=== PATIENT | male | born 1985 | race Caucasian/White ===

== ENCOUNTER 2017-04-03 11:52 | Observation (INO) | payer OTHER ==
--- NOTE | ~2017-04-03 | OR ---
Unit #: [id number] #: [id number] Patient: MELISSA CEDEÑO [id number] [address] [place], [place] [address] [id number] I MR#: [id number] NAME: MELISSA CEDÑEO ROOM: 226 Date of Procedure: 04/03/2017 Admission Date: 04/03/2017 Surgeon: Tim Conte Jr., M.D. : 1985 Attending Physician: Tim Conte Jr., M.D. Primary Care Physician: Karolina Alexander A.P.R.N. OPERATIVE REPORT INDICATIONS FOR PROCEDURE The patient is a 31-year-old white male, who presented complaining of severe right lower quadrant abdominal pain with associated nausea and vomiting. White blood cell count was elevated. CT scan was compatible with acute probably nonperforated appendicitis. He is brought to the operating room at this time for laparoscopic appendectomy. He understands the procedure including the risks, including that of bleeding, infection, staple line leak and abscess formation, and consents. PREOPERATIVE DIAGNOSIS Acute nonperforated appendicitis. POSTOPERATIVE DIAGNOSIS Acute nonperforated appendicitis. Noting a retrocecal appendix extending all the way up to under the liver edge on the right. There was no evidence of any perforation. ANESTHESIA General with endotracheal intubation and 0.5% Marcaine with epinephrine locally. PROCEDURE PERFORMED Laparoscopic lysis of adhesions, requiring approximately 10 to 15 minutes with laparoscopic appendectomy. DESCRIPTION OF PROCEDURE The patient was positioned in supine position. After being anesthetized and intubated, he was prepped and draped in routine fashion for laparoscopic appendectomy. A small infraumbilical incision was made approximately a centimeter in length. This was carried down to the fascia. The fascia in the umbilicus was lifted with a towel clip and a Veress needle was introduced into the abdomen. The abdomen was then inflated with CO2 gas. A 5-mm port was introduced into the abdomen followed by the camera. There was no evidence of any injury related to introduction of the port or the Veress needle. Additional 5-mm port was placed fdc between the umbilicus and suprapubic area, and a 12-mm port just to the right of the upper midline. The cecum was mobilized and there was a retrocecal appendix which was acutely inflamed, but without evidence of any perforation. There were multiple adhesions posterior to the cecum and these were all taken down sharply with hook scissors as well as blunt dissection. After the cecum and appendix were mobilized, a window was created at the base of the appendix. Using the linear 3.5 mm stapler, the Unit #: [id number] #: [id number] Patient: MELISSA CEDEÑO was stapled and divided. Using two separate vascular loads, the mesoappendix was clamped and divided, and once the appendix was freed up, it was placed in the EndoCatch bag and brought out through the larger port site. The port was replaced. The right lower quadrant was checked and observed for over 5 minutes for any bleeding. There was no evidence of any bleeding at all. After total hemostasis was noted, the CO2 was expressed from the abdomen. The fascia in the larger port site was closed by the neoClose technique and the wounds were irrigated. Once the ports were removed, there was no evidence of any bleeding from the port sites. Hemostasis was achieved with Bovie cautery, and after hemostasis was achieved, the skin edges on all three port sites were approximated with stainless-steel skin clips and skin stapling device. Sterile dressings were applied externally. Estimated blood loss was less than 50 mL. The patient received less than 1500 mL of crystalloid solution during the procedure. Sponges and instruments counts were correct x3. No drains were used. No complications. The patient was taken to the recovery room with stable vital signs in satisfactory condition. Dictated by... Tim Conte Jr., Lizzy. JUDY/zeinab TD: 04/04/2017 16:14 JOB #: [id number] OPERATIVE REPORT Page 1 of 1 X Tim Conte MD X PROCEDURE OPERATIVE NOTE
--- NOTE | ~2017-04-03 | DS ---
Unit #: [id number] #: [id number] Patient: MELISSA CEDEÑO [id number] [address] [place], [place] [address] [id number] I MR#: [id number] NAME: MELISSA CEDEÑO ROOM: 226 Age: 31 Sex: M Admission Date: 04/03/2017 : 1985 Discharge Date: 04/05/2017 Attending Physician: Tim Conte Jr., M.D. Primary Care Physician: Karolina Alexander A.P.R.N. DISCHARGE SUMMARY DISCHARGE DIAGNOSIS Acute retroperitoneal appendicitis, nonperforated. OPERATIVE PROCEDURE Laparoscopic appendectomy. DISCHARGE MEDICATIONS Home medications plus Lortab 7.5 mg one p.o. q.4 hours p.r.n. pain. HISTORY OF PRESENT ILLNESS AND HOSPITAL COURSE A 31-year-old white male who presented with right lower quadrant abdominal pain, nausea, vomiting. CT scan showing an inflamed dilated appendix. He was taken to surgery, found to have retrocecal appendicitis but no perforation. He was observed postop for 36 hours. His diet was gradually advanced. Overall, he has done quite well. His wound looks good. He is ready to be discharged. He will come back to see us in the office for followup evaluation in approximately 7 to 10 days. He is to do no heavy lifting or strenuous activity. Dictated by... Preston Devine/conchis TD: 04/05/2017 08:29 JOB #: [id number] DISCHARGE SUMMARY Page 1 of 1 X Adrian Silva MD X DISCHARGE SUMMARY
--- NOTE | ~2017-04-03 | CT2 ---
[facility] A Service of [facility] RADIOLOGY TEXT RESULTS PATIENT: MELISSA CEDEÑO LOCATION: [facility] [id number] : [birth year] UNIT #: [id number] AGE: [address]: Tim Conte MD SEX: M ORDER DR: [id number] [place] [id number] [facility]. [place], [place] [address] [id number] MR#: [id number] Acc #: [id number] NAME: MELISSA CEDEÑO : 1985 SEX: M STUDY DATE/TIME: 04/03/2017 14:33 UNIT: CEDOF ROOM: [id number] STUDY DESCRIPTION: CT Abd and Pelv W Cont Attending Physician: Merissa Whaley M.D. Ordering Physician: Itz Prieto M.D. Primary Care Physician: Karolina Alexander A.P.R.N. MEDICAL IMAGING REPORT This report is preliminary unless electronic signature is present EXAM CT of the abdomen and pelvis with IV contrast media. HISTORY Right-sided abdominal pain, nausea, and vomiting. TECHNIQUE Axial imaging of the abdomen and pelvis was performed with IV contrast media. This CT exam was performed with one or more of the following radiation dose reduction techniques: automatic exposure control, adjustment of mA and/or kV according to patient size, and iterative reconstruction. FINDINGS Lung bases are clear. Liver, spleen, gallbladder, adrenal glands, pancreas, and both kidneys are normal. The of small bowel and colon appear normal. The appendix is dilated, measuring up to a centimeter with mild periappendiceal inflammatory changes. There are small reactive nodes medial to the cecum and appendix. No pelvic masses or fluid collections are seen. CONCLUSION Dilated appendix with mild periappendiceal inflammatory changes consistent with acute appendicitis. Dictated by... Jose Krueger M.D. THIS IS AN ELECTRONICALLY VERIFIED REPORT Jose Krueger M.D. at 04/04/2017 5:11 PM SELAM/faby [facility] A Service [facility] RADIOLOGY TEXT RESULTS PATIENT: MELISSA CEDEÑO LOCATION: [facility] 226-01 : [birth year] UNIT #: [id number] AGE: [address]: Tim Conte MD SEX: M ORDER DR: TD: 04/03/2017 20:58 JOB #: [id number] MEDICAL IMAGING REPORT Page 1 of 1 COPY
--- NOTE | ~2017-04-03 | HP ---
Unit #: [id number] #: [id number] Patient: MELISSA CEDEÑO [id number] [address] [place], [place] [address] [id number] I MR#: [id number] NAME: MELISSA CEDEÑO ROOM: 04747 Age: 31 Sex: M Admission Date: 04/03/2017 : 1985 Attending Physician: Merissa Whaley M.D. Primary Care Physician: Karolina Alexander A.P.R.N. HISTORY AND PHYSICAL CHIEF COMPLAINT Right lower quadrant abdominal pain. HISTORY OF PRESENT ILLNESS The patient is a 31-year-old white male who was in normal good health up until last evening when he developed some gas-like pains in the mid abdomen. His pain now has shifted to the right lower quadrant. He did try having a bowel movement to eliminate the gas, but this was unsuccessful. He has had nausea and vomiting along with this but no fever, no chills, no diarrhea, and no constipation. He has had no recent URI and no urinary tract symptoms. PAST MEDICAL HISTORY/SERIOUS ILLNESS History of psych problems with anxiety and depression. Otherwise, no other problems. PAST SURGICAL HISTORY None. MEDICATIONS None chronically. ALLERGIES Penicillin. FAMILY HISTORY Noncontributory according to the patient. SOCIAL HISTORY Patient is single. He smokes approximately a half pack of cigarettes per day and is an occasional drinker. IMMUNIZATIONS Up-to-date. REVIEW OF SYSTEMS A 10-system review has been performed which is unremarkable other than as stated above in History of Present Illness. PHYSICAL EXAMINATION VITAL SIGNS: Temperature on admission 99.1, pulse 89, respirations 20, and blood pressure 116/56. GENERAL: Patient is a well-developed, well-nourished, muscular, 31-year-old white male in no acute distress. Unit #: [id number] #: [id number] Patient: MELISSA CEDEÑO HEENT: Unremarkable. NECK: Supple. CHEST: Equal bilateral expansion with bilateral equal breath sounds. LUNGS: Clear bilaterally. HEART: Regular rhythm without murmurs or gallops. No evidence of cardiomegaly clinically. ABDOMEN: Soft and moderately tender in the right lower quadrant with some guarding and no significant rebound. Active bowel sounds present. No evidence of ascites or hernias. EXTREMITIES: Full range of motion without limitation. No evidence of peripheral edema. BACK: No CVA tenderness. NEUROLOGIC: Grossly intact. DIAGNOSTIC STUDIES LABORATORY: White blood cell count is elevated. IMAGING: CT scan reveals evidence of a dilated appendix with stranding compatible with acute appendicitis, probably not performed, with no evidence of an abscess. IMPRESSION The patient most likely has acute nonperforated appendicitis. PLAN Go ahead with a laparoscopic appendectomy with diagnostic laparoscopy. The patient understands the procedure including the risks including that of intraabdominal organ injury, bleeding, abscess formation, and staple line leaks, and consents. Dictated by Tim Conte Jr., M.D. JUDY/bessy TD: 04/03/2017 21:11 JOB #: [id number] HISTORY AND PHYSICAL Page 1 of 1 X Tim Conte MD X HISTORY AND PHYSICAL
[2017-04-03 12:42] LABS: BASOPHIL% 0.3 % (0-2.5); EOSINOPHIL% 0.2 % (0.0-7.0); HEMATOCRIT 43.7 % (38.0-50.0); HEMOGLOBIN 14.8 gm/dL (13.0-16.0); LYMPHOCYTE# 0.7 X10e3 (1.0-3.5); LYMPHOCYTE% 4.7 % (17.0-45.0); MEAN CORPUSCULAR HEMOGLOBIN 27.8 PG (28-34); MEAN CORPUSCULAR HGB CONC 33.9 g/dL (30-36); MEAN PLATELET VOLUME 8.5 FL (6.5-11.5); MONOCYTE# 0.8 X10e3 (0-1.0); MONOCYTE% 5.1 % (3.0-12.0); NEUTROPHIL# 14.2 X10e3 (1.5-7.1); NEUTROPHIL% 89.7 % (40-75); PLATELET COUNT 211 X10e3 (140-420); RED BLOOD COUNT 5.32 X10e (3.90-5.60); RED CELL DISTRIBUTION WIDTH 14.2 % (11.0-15.5); WHITE BLOOD COUNT 15.8 X10e3 (4.0-10.5)
[2017-04-03 12:43] LABS: DIFF IND YES
[2017-04-03 13:09] LABS: BILIRUBIN, DIRECT 0.2 mg/dL (0.0-0.2); BILIRUBIN,INDIRECT 1.2 mg/dL (0.0-0.9); BILIRUBIN,TOTAL 1.4 mg/dL (0.2-2.0); BUN/CREATININE RATIO 12.3; CALCIUM SERUM 10.1 mg/dL (8.4-10.2); CREATININE SERUM 1.3 mg/dL (0.6-1.4); GLOM FILT RATE Estimated 73.2 mL/min (>60); POTASSIUM 3.6 mmol/L (3.5-5.1); PROTEIN TOTAL SERUM 8.1 g/dL (6.0-8.3)
[2017-04-03 13:13] LABS: PLATELET ESTIMATE NORMAL (NORMAL)
[2017-04-03 13:35] LABS: URINE SOURCE CLEAN CATCH
[2017-04-03 13:50] LABS: URINE APPEARANCE CLEAR; URINE BILIRUBIN NEG (NEG); URINE BLOOD NEG (NEG); URINE COLOR YELLOW; URINE GLUCOSE NEG (NEG); URINE KETONE 1+ (NEG); URINE LEUKOCYTE ESTERASE NEG (NEG); URINE NITRATE NEG (NEG); URINE PROTEIN TRACE (NEG); URINE SPECIFIC GRAVITY 1.018 (1.003-1.035)
[2017-04-03] MEDS ORDERED: NO MEDICATIONS (15:34)
[2017-04-04 06:39] LABS: MEAN CELL VOLUME 82.5 FL (83-96); MEAN CORPUSCULAR HEMOGLOBIN 28.1 PG (28-34); MEAN CORPUSCULAR HGB CONC 34.1 g/dL (30-36); MEAN PLATELET VOLUME 8.8 FL (6.5-11.5); RED BLOOD COUNT 4.61 X10e (3.90-5.60); RED CELL DISTRIBUTION WIDTH 14.2 % (11.0-15.5); WHITE BLOOD COUNT 17.6 X10e3 (4.0-10.5)
[2017-04-05] MEDS ORDERED: LORTAB 7.5-3251 EACH PO (07:50)
== END 2017-04-05 09:53 | disposition home or self-care (01) | DRG 395 ==
LOC: CED 11:52 → C2A 17:30 → CEDOF 17:30 → CED 17:35 → CEDOF 17:35 → C2A 23:09
PROVIDERS: Emergency Medicine; Family Medicine
DX: K35.89 Other acute appendicitis (principal); F17.210 Nicotine dependence, cigarettes, uncomplicated
CPT/HCPCS: 36415; 74177; 80048; 80076; 81003; 83690; 85025; 85027; 88304; 96361; 96365; 96374; 96375; 96376; 99285; C1713; C1781; G0378; J0330; J0692; J1100; J1335; J1885; J2250; J2270; J2405; J2710; J2765; J3010; Q9967